=== PATIENT | female | born 1980 | race Caucasian/White ===

== ENCOUNTER 2020-12-22 08:15 | Emergency (ER) | payer OTHER, SELFPAY ==
[~2020-12-22] VITALS: Ht 160 cm; Wt 63.5 kg
[2020-12-22 08:21] VITALS: BP 148/83
[2020-12-22] MEDS ORDERED: CEPH-588 PO (10:28)
== END 2020-12-22 10:35 | disposition home or self-care (01) ==
LOC: MED 08:15
DX: N39.0 Urinary tract infection, site not specified (principal); Z20.822 Contact with and (suspected) exposure to COVID-19; N12 Tubulo-interstitial nephritis, not specified as acute or chronic; R11.10 Vomiting, unspecified; Z79.899 Other long term (current) drug therapy
CPT/HCPCS: 81002; 81025; 99283; U0003